=== PATIENT | female | born 1965 | race African-American/Black ===

== ENCOUNTER 2019-08-03 09:23 | Emergency (ER) | payer OTHER | END 2019-08-03 18:45 | disposition home or self-care (01) | LOC: JER 09:23 ==

== ENCOUNTER 2019-08-04 08:41 | Inpatient (IN) | payer OTHER ==
[2019-08-04 09:07] VITALS: BMI 16.0
--- NOTE | 2019-08-04 10:49 | HP ---
CIWA Score Nausea/Vomitin-No Nausea/No Vomiting Muscle Tremors: None Anxiety: 0-No Anxiety, at Ease Agitation: 1-Slight > Activity Paroxysmal Sweats: No Perspiration Orientation: 0-Oriented Tacttile Disturbances: 0-None Auditory Disturbances: 0-None Visual Disturbances: 0-None Headache: 0-None Present CIWA-Ar Total Score: 1 - Admission Criteria OASAS Guidelines: Admission for Medically Managed Detox: Requires at least one of the followin. CIWA greater than 12 2. Seizures within the past 24 hours 3. Delirium tremens within the past 24 hours 4. Hallucinations within the past 24 hours 5. Acute intervention needed for co occurring medical disorder 6. Acute intervention needed for co occurring psychiatric disorder 7. Severe withdrawal that cannot be handled at a lower level of care (continued vomiting, continued diarrhea, abnormal vital signs) requiring intravenous medication and/or fluids 8. Admission ROS [facility] Allergies/Adverse Reactions: Allergies Allergy/AdvReac Type Severity Reaction Status Date / Time No Known Allergies Allergy Verified 08/04/19 08:55 History of Present Illness: 54 y.o. female pt requesting detox from etoh use , reports sober x 20 years , relapsed 1 yr ago after loss of , mother . currently 2 pints /day , occasional tremors , denies blackouts or seizures, current symptoms as above, was in ER [facility] overnight, given Librium . Reports feeling off - balance s/p fall 1 week ago , seen in ER yesterday , head CT done . tobacco ; 1 ppd PMHX : htn PSych : denies PSHX : denies Exam Limitations: No Limitations - Ebola screening Have you traveled outside of the country in the last 21 days: No Have you had contact with anyone from an Ebola affected area: No Do you have a fever: No - Review of Systems Constitutional: Loss of Appetite EENT: reports: Other (lost glasses ( myopia )) Respiratory: reports: No Symptoms reported Cardiac: reports: No Symptoms Reported GI: reports: Diarrhea, Poor Appetite : reports: No Symptoms Reported Musculoskeletal: reports: No Symptoms Reported Integumentary: reports: No Symptoms Reported Neuro: reports: No Symptoms reported Endocrine: reports: No Symptoms Reported Psychiatric: reports: Orientated x3 Patient History - Patient Medical History Hx Chronic Obstructive Pulmonary Disease (COPD): No - Patient Surgical History Hx Lung Surgery: No - Smoking Cessation Smoking history: Current every day smoker Have you smoked in the past 12 months: Yes Aproximately how many cigarettes per day: 20 Hx Chewing Tobacco Use: No Initiated information on smoking cessation: No - Substances abused Alcohol Substance route: Oral Frequency: Daily Amount used: vodka-2pt Age of first use: 18 Date of last use: 08/03/19 Family Disease History - Family Disease History Family History: Denies Admission Physical Exam B[facility] - Vital Signs Vital Signs: Vital Signs - 24 hr 08/04/19 08/04/19 08:55 10:06 Temperature 97.2 F L 97.2 F L Pulse Rate 93 H 93 H Respiratory 18 18 Rate Blood Pressure 158/108 H 158/108 H - Physical General Appearance: Yes: No Apparent Distress HEENTM: Yes: EOMI, Hearing grossly Normal, Normocephalic, Normal Voice Respiratory: Yes: Lungs Clear, Normal Breath Sounds, No Respiratory Distress, No Accessory Muscle Use Neck: Yes: No masses,lesions,Nodules, Trachea in good position Cardiology: Yes: Regular Rhythm, Regular Rate, S1, S2, Tachycardia Abdominal: Yes: Non Tender, Soft Back: Yes: Normal Inspection Musculoskeletal: Yes: Gait Steady Extremities: Yes: Normal Range of Motion, Non-Tender Neurological: Yes: Fully Oriented, Alert, Motor Strength 5/5 Integumentary: Yes: Warm - Diagnostic (1) Alcohol abuse Current Visit: Yes Status: Acute Breathalyzer - Breathalyzer Breathalyzer: 0 Urine Drug Screen - Test Device Lot number: [id number] Expiration date: 04/17/21 - Control Is test valid?: Yes - Results Drug screen NEGATIVE: No Urine drug screen results: BZO-Benzodiazepines Inpatient Rehab Admission - Rehab Decision to Admit Inpatient rehab admission?: No
[2019-08-04] MEDS ORDERED: MENTHOL/PHENOL 1 EACH UD MM PRN (10:55)
[2019-08-04] MEDS ORDERED: MAGNESIUM CITRATE 300 ML BOTTLE PO PRN (10:55)
[2019-08-04] MEDS ORDERED: MELATONIN 5 MG TABLETS PO PRN (10:55)
[2019-08-04] MEDS ORDERED: MAGNESIUM HYDROX 2400MG/30ML ORAL SUSPENSION 30 ML CUP PO PRN (10:55)
[2019-08-04] MEDS ORDERED: MAG HYDROX/AL HYDROX/SIMETH 30 ML UNIT-DOSE CUP PO PRN (10:55)
[2019-08-04] MEDS ORDERED: BISMUTH SUBSALICYLATE 524 MG/30 ML UD PO PRN (10:55)
[2019-08-04] MEDS ORDERED: ACETAMINOPHEN 325 MG TABLET (FP) PO PRN ×2 (10:55)
[2019-08-04] MEDS ORDERED: hydrOXYzine PAMOATE 25 MG CAPSULE (FP) PO PRN (10:55)
[2019-08-04] MEDS ORDERED: IBUPROFEN 400 MG TABLET (FP) PO PRN (10:55)
[2019-08-04] MEDS ORDERED: diazePAM 5 MG TABLET PO PRN (10:58)
[2019-08-04] MEDS: diazePAM 5 MG TABLET PO SCH ×2 (15:15→22:20)
[2019-08-04] MEDS: THIAMINE HCL 100 MG TABLET (FP) PO SCH (22:20)
[2019-08-05] MEDS: diazePAM 5 MG TABLET PO SCH ×2 (06:12→15:12)
[2019-08-05] MEDS: PRENATAL VITAMINS W/ FOLIC ACID TABLET (FP) PO SCH (10:28)
--- NOTE | 2019-08-05 12:07 | PN ---
S CIWA - CIWA Score Nausea/Vomitin-No Nausea/No Vomiting Muscle Tremors: 1-None Visible, but [place] Anxiety: 1-Mildly Anxious Agitation: 1-Slight > Activity Paroxysmal Sweats: No Perspiration Orientation: 0-Oriented Tacttile Disturbances: 0-None Auditory Disturbances: 0-None Visual Disturbances: 0-None Headache: 0-None Present CIWA-Ar Total Score: 3 BHS Progress Note (SOAP) Subjective: anxiety irritable tired Objective: 08/05/19 12:06 Vital Signs Temperature 98.1 F 08/05/19 09:27 Pulse Rate 101 H 08/05/19 09:27 Respiratory Rate 18 08/05/19 09:27 Blood Pressure 128/92 08/05/19 09:27 O2 Sat by Pulse Oximetry (%) Laboratory Tests 08/04/19 08/05/19 10:07 08:20 POC Urine HCG, Qual Negative RPR Titer Nonreactive rest of labs pending aaox3 ambulating no acute distress Assessment: 08/05/19 12:07 mild withdrawals Plan: continue detox increase fluids
[2019-08-06] MEDS: diazePAM 5 MG TABLET PO SCH ×3 (00:07→17:25)
[2019-08-06] MEDS: THIAMINE HCL 100 MG TABLET (FP) PO SCH ×2 (00:07→22:10)
[2019-08-06] MEDS: PRENATAL VITAMINS W/ FOLIC ACID TABLET (FP) PO SCH (10:23)
[2019-08-06] MEDS ORDERED: MELATONIN 5 MG TABLETS PO PRN (10:27)
--- NOTE | 2019-08-06 10:30 | PN ---
S CIWA - CIWA Score Nausea/Vomitin-No Nausea/No Vomiting Muscle Tremors: 1-None Visible, but [place] Anxiety: 1-Mildly Anxious Agitation: 1-Slight > Activity Paroxysmal Sweats: No Perspiration Orientation: 0-Oriented Tacttile Disturbances: 0-None Auditory Disturbances: 0-None Visual Disturbances: 0-None Headache: 0-None Present CIWA-Ar Total Score: 3 BHS Progress Note (SOAP) Subjective: sweats anxiety Objective: 08/06/19 10:30 Vital Signs Temperature 97.5 F L 08/06/19 09:24 Pulse Rate 84 08/06/19 09:24 Respiratory Rate 16 08/06/19 09:24 Blood Pressure 154/98 08/06/19 09:24 O2 Sat by Pulse Oximetry (%) Laboratory Tests 08/04/19 08/05/19 10:07 08:20 POC Urine HCG, Qual Negative RPR Titer Nonreactive aaox3 ambulating no acute distress Assessment: 08/06/19 14:45 mild withdrawals Plan: continue detox d/c in am
[2019-08-06] MEDS ORDERED: cloNIDine HCL 0.1 MG TABLET PO ONE (22:45)
--- NOTE | 2019-08-07 00:10 | PN ---
BHS Progress Note Note: Patient's blood pressure is B/P 179/115. Patient is asymptomatic Vital Signs Temperature 97 F L 08/06/19 22:45 Pulse Rate 88 08/06/19 22:45 Respiratory Rate 18 08/06/19 22:45 Blood Pressure 179/115 H 08/06/19 22:45 O2 Sat by Pulse Oximetry (%) Action: Clonidine 0.1mg tablet ordered
[2019-08-07] MEDS ORDERED: diazePAM 5 MG TABLET PO ONE (06:00)
--- NOTE | 2019-08-07 08:47 | DS ---
[facility] Detox Discharge Summary Admission Date: 08/04/19 Discharge Date: 08/07/19 - History Present History: Alcohol Dependence - Physical Exam Results Vital Signs: Vital Signs Temperature 96.8 F L 08/07/19 07:54 Pulse Rate 66 08/07/19 07:54 Respiratory Rate 18 08/07/19 07:54 Blood Pressure 154/104 H 08/07/19 07:54 O2 Sat by Pulse Oximetry (%) Pertinent Admission Physical Exam Findings: pt arrived in withdrawals Laboratory Tests 08/04/19 08/05/19 10:07 08:20 POC Urine HCG, Qual Negative RPR Titer Nonreactive aaox3 ambulating no acute distress - Treatment Hospital Course: Detox Protocol Followed, Detoxed Safely, Responded well, Discharged Condition Good, Rehab Referral Accepted Patient has Accepted a Rehab Referral to: referral to [facility] inpatient rehab - Medication Discharge Medications: Ambulatory Orders NK [No Known Home Medication] 08/03/19 - Diagnosis (1) Alcohol abuse Current Visit: Yes Status: Chronic - AMA Did Patient Leave Against Medical Advice: No
[2019-08-07] MEDS: PRENATAL VITAMINS W/ FOLIC ACID TABLET (FP) PO SCH (11:21)
[2019-08-07] MEDS ORDERED: cloNIDine HCL 0.1 MG TABLET PO ONE (13:52)
[2019-08-07 14:01] VITALS: BP 151/105; PULSE 79; TEMP 96.8
--- NOTE | 2019-08-07 14:19 | PN ---
S Progress Note Note: Vital Signs Temperature 96.8 F L 08/07/19 14:01 Pulse Rate 79 08/07/19 14:01 Respiratory Rate 18 08/07/19 14:01 Blood Pressure 151/105 H 08/07/19 14:01 O2 Sat by Pulse Oximetry (%) clonidine 0.1 mg po now discharge to rehab as [employer] ME[employer]IC note Love Mckeon
== END 2019-08-07 15:51 | disposition other institution (70) | DRG 775 ==
LOC: YASAS 08:41 → Y6N 11:25
PROVIDERS: ADMIT Surgery; ATTEND Surgery
PROC: HZ2ZZZZ Detoxification Services for Substance Abuse Treatment (ICD-10-PCS; principal; 2019-08-04)
DX: F10.230 Alcohol dependence with withdrawal, uncomplicated (principal); F17.210 Nicotine dependence, cigarettes, uncomplicated; I10 Essential (primary) hypertension
CPT/HCPCS: 36415; 81025; 86480; 86593; J0735

== ENCOUNTER 2019-08-07 15:16 | Inpatient (IN) | payer OTHER ==
--- NOTE | 2019-08-07 15:32 | HP ---
[facility] Rehab Assess/Revision - Admission History Admitted to Rehab from: [facility] Date of Admission to Rehab: 08/07/19 - Findings Detox History & Physical reviewed: Yes Concur with findings: Yes Comments/Additional Findings: for rehab as protocol Inpatient Rehab Admission - Rehab Decision to Admit Inpatient rehab admission?: Yes - Initial Determination Are CD services needed?: Yes Free of communicable disease: Yes Not in need of hospitalization: Yes - Rehab Admission Criteria Previous failed treatment: Yes Poor recovery environment: Yes Comorbidities: Yes Lacks judgement: No Patient is meeting Inpatient Rehab admission criteria:: Yes
[2019-08-07] MEDS ORDERED: P-EPHED 60MG/TRIPROLIDI 2.5MG TABLET PO PRN (15:36)
[2019-08-07] MEDS ORDERED: MAGNESIUM CITRATE 300 ML BOTTLE PO PRN (15:36)
[2019-08-07] MEDS ORDERED: hydrOXYzine PAMOATE 50 MG CAPSULE (FP) PO PRN (15:36)
[2019-08-07] MEDS ORDERED: MAGNESIUM HYDROX 2400MG/30ML ORAL SUSPENSION 30 ML CUP PO PRN (15:36)
[2019-08-07] MEDS ORDERED: MENTHOL/PHENOL 1 EACH UD MM PRN (15:36)
[2019-08-07] MEDS ORDERED: MAG HYDROX/AL HYDROX/SIMETH 30 ML UNIT-DOSE CUP PO PRN (15:36)
[2019-08-07] MEDS ORDERED: guaiFENesin 200 MG/10 ML 10 ML UNIT-DOSE CUPS PO PRN (15:36)
[2019-08-07] MEDS ORDERED: LOPERAMIDE HCL 2 MG CAPSULE PO PRN (15:36)
[2019-08-07] MEDS ORDERED: ACETAMINOPHEN 325 MG TABLET (FP) PO PRN (15:36)
[2019-08-07] MEDS: THIAMINE HCL 100 MG TABLET (FP) PO SCH (21:19)
[2019-08-07] MEDS: MELATONIN 5 MG TABLETS PO PRN (21:19)
[2019-08-07] MEDS: cloNIDine HCL 0.1 MG TABLET PO SCH (21:19)
[2019-08-08] MEDS: PRENATAL VITAMINS W/ FOLIC ACID TABLET (FP) PO SCH (09:42)
[2019-08-08] MEDS: cloNIDine HCL 0.1 MG TABLET PO SCH ×2 (09:43→21:37)
[2019-08-08] MEDS: THIAMINE HCL 100 MG TABLET (FP) PO SCH (21:37)
[2019-08-08] MEDS: MELATONIN 5 MG TABLETS PO PRN (21:38)
[2019-08-08] MEDS ORDERED: PT OWN MED DRAWER 7, Y5N ONE (22:27)
[2019-08-08] MEDS ORDERED: ACETAMINOPHEN 325 MG TABLET (FP) ONE (22:28)
[2019-08-09] MEDS: PRENATAL VITAMINS W/ FOLIC ACID TABLET (FP) PO SCH (09:46)
[2019-08-09] MEDS: cloNIDine HCL 0.1 MG TABLET PO SCH ×2 (09:46→21:19)
[2019-08-09] MEDS: THIAMINE HCL 100 MG TABLET (FP) PO SCH (21:19)
[2019-08-09] MEDS: MELATONIN 5 MG TABLETS PO PRN (21:19)
[2019-08-10] MEDS: PRENATAL VITAMINS W/ FOLIC ACID TABLET (FP) PO SCH (09:37)
[2019-08-10] MEDS: cloNIDine HCL 0.1 MG TABLET PO SCH ×2 (10:31→22:10)
--- NOTE | 2019-08-10 12:14 | PN ---
S Progress Note Note: Patient c/o anxiety, sadness and insomnia since admission. Patient denies SI/ HI. Vital Signs Temperature 97.5 F L 08/10/19 06:45 Pulse Rate 73 08/10/19 10:00 Respiratory Rate 16 08/10/19 06:45 Blood Pressure 121/85 08/10/19 10:00 O2 Sat by Pulse Oximetry (%) PE alert and oriented x 3 skin warm and dry +perrla, eoms intact bl ext full rom, amb ad monae mildly anxious A/P sad affect insomnia anxiety psych consult ordered
--- NOTE | 2019-08-10 19:21 | CONSULT ---
[facility] Psychiatric Consult - Data Date of interview: 08/10/19 Admission source: [facility] Identifying data: First visit at [facility] and direct admission to [address] for this 54 y/o AA female self-referred for rehabilitative care for alcohol use disorder. 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 Substance Abuse History: Smoking history: Current every day smoker. Have you smoked in the past 12 months: Yes. Aproximately how many cigarettes per day: 20. Hx Chewing Tobacco Use: No. Initiated information on smoking cessation: No. - Substances abused. Alcohol. Substance route: Oral. Frequency: Daily. Amount used: vodka-2pt. Age of first use: 18. Date of last use: Medical History: Hypertension. Psychiatric History: Patient denies history of psychiatric hospitalizations, OPD care or suicide attempts. Physical/Sexual Abuse/Trauma History: Traumas : deaths of mother (2010) + (2014), relocation to [facility] (lost everything in [place]) and alcohol dependence. Additional Comment: Urine drug screen results: BZO-Benzodiazepines. Noted. Mental Status Exam - Mental Status Exam Alert and Oriented to: Time, Place, Person Cognitive Function: Good Patient Appearance: Well Groomed (thin, frail habitus) Mood: Withdrawn, Apprehensive Affect: Appropriate, Mood Congruent, Normal Range Patient Behavior: Cooperative Speech Pattern: Clear, Appropriate Voice Loudness: Normal Thought Process: Intact, Goal Oriented Thought Disorder: Not Present Hallucinations: Denies Suicidal Ideation: Denies Insight/Judgement: Fair Sleep: Well Appetite: Good Gait/Station: Normal Psychiatric Findings - Problem List ([place] 1, 2,3) (1) Alcohol use disorder Current Visit: Yes Status: Chronic - Initial Treatment Plan Initial Treatment Plan: Psychoeducation. Sleep hygiene. Support. AA meetings. Relapse prevention (MAT) revisited with the patient. Ms Little is offered options of naltrexone (oral and long-acting formulation) or acamprosate. Patient indicates that she needs time " to think about it ". Motivational counseling. Observation. Interview was conducted in the presence of building engineer, CAMILLA Max (with patient's verbal authorization).
[2019-08-10] MEDS ORDERED: PT OWN MED DRAWER 7, Y5N ONE (21:03)
[2019-08-10] MEDS: MELATONIN 5 MG TABLETS PO PRN (22:10)
[2019-08-10] MEDS: THIAMINE HCL 100 MG TABLET (FP) PO SCH (22:10)
[2019-08-11] MEDS: PRENATAL VITAMINS W/ FOLIC ACID TABLET (FP) PO SCH (09:51)
[2019-08-11] MEDS ORDERED: BENZOCAINE 20 % GEL TUBE MM PRN (10:11)
[2019-08-11] MEDS: MELATONIN 5 MG TABLETS PO PRN (21:31)
[2019-08-11] MEDS: THIAMINE HCL 100 MG TABLET (FP) PO SCH (21:31)
[2019-08-12] MEDS: PRENATAL VITAMINS W/ FOLIC ACID TABLET (FP) PO SCH (09:37)
[2019-08-12] MEDS: THIAMINE HCL 100 MG TABLET (FP) PO SCH (21:39)
[2019-08-12] MEDS ORDERED: PT OWN MED DRAWER 7, Y5N ONE (22:03)
[2019-08-13] MEDS: PRENATAL VITAMINS W/ FOLIC ACID TABLET (FP) PO SCH (10:54)
[2019-08-13] MEDS ORDERED: PT OWN MED DRAWER 7, Y5N ONE ×2 (20:28→21:59)
[2019-08-13] MEDS: THIAMINE HCL 100 MG TABLET (FP) PO SCH (21:31)
[2019-08-13] MEDS: MELATONIN 5 MG TABLETS PO PRN (21:31)
[2019-08-14] MEDS: PRENATAL VITAMINS W/ FOLIC ACID TABLET (FP) PO SCH (10:09)
[2019-08-14] MEDS: IBUPROFEN 400 MG TABLET (FP) PO PRN (13:35)
[2019-08-14] MEDS: MELATONIN 5 MG TABLETS PO PRN (21:12)
[2019-08-14] MEDS: THIAMINE HCL 100 MG TABLET (FP) PO SCH (21:12)
[2019-08-15] MEDS: PRENATAL VITAMINS W/ FOLIC ACID TABLET (FP) PO SCH (09:36)
[2019-08-16] MEDS: THIAMINE HCL 100 MG TABLET (FP) PO SCH ×2 (00:05→21:10)
[2019-08-16] MEDS: PRENATAL VITAMINS W/ FOLIC ACID TABLET (FP) PO SCH (09:50)
[2019-08-16] MEDS: MELATONIN 5 MG TABLETS PO PRN (21:10)
[2019-08-17] MEDS: PRENATAL VITAMINS W/ FOLIC ACID TABLET (FP) PO SCH (09:36)
[2019-08-17] MEDS ORDERED: PT OWN MED DRAWER 7, Y5N ONE ×2 (10:20→19:56)
[2019-08-17] MEDS: MELATONIN 5 MG TABLETS PO PRN (21:27)
[2019-08-17] MEDS: THIAMINE HCL 100 MG TABLET (FP) PO SCH (21:27)
[2019-08-18] MEDS: PRENATAL VITAMINS W/ FOLIC ACID TABLET (FP) PO SCH (09:35)
[2019-08-18] MEDS: MELATONIN 5 MG TABLETS PO PRN (21:12)
[2019-08-18] MEDS: METHYL SALICYLATE/MENTHOL OINT 30 GM TUBE TP PRN (21:12)
[2019-08-18] MEDS: THIAMINE HCL 100 MG TABLET (FP) PO SCH (21:12)
[2019-08-18] MEDS ORDERED: PT OWN MED DRAWER 7, Y5N ONE (21:43)
[2019-08-19] MEDS: PRENATAL VITAMINS W/ FOLIC ACID TABLET (FP) PO SCH (09:32)
[2019-08-19] MEDS: THIAMINE HCL 100 MG TABLET (FP) PO SCH (21:13)
[2019-08-19] MEDS: MELATONIN 5 MG TABLETS PO PRN (21:13)
[2019-08-19] MEDS: METHYL SALICYLATE/MENTHOL OINT 30 GM TUBE TP PRN (21:13)
[2019-08-20] MEDS: PRENATAL VITAMINS W/ FOLIC ACID TABLET (FP) PO SCH (09:35)
--- NOTE | 2019-08-20 11:05 | DS ---
[facility] Rehab Discharge Summary - [facility] Rehab Discharge Summary Admission Date: 08/07/19 Discharge Date: 08/20/19 - History Present History: Alcohol dependence Pertinent Past History: PT was admitted on 08/04 for alcohol detox. Completed 08/07. Has been in rehab since then. Pt states she is doing well. Pt states she goes to AA meetings- and will continue with this. 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 Pt states she has strong support systems. Pt states she has HTN- but was not taking meds. Pt will be getting a PCP- through [facility]- to follow up her BP. PT states she does not need any medications. Vital Signs - 24 hr 08/20/19 08/20/19 00:30 07:12 Temperature 97.4 F L Pulse Rate 81 Respiratory 16 18 Rate Blood Pressure 136/94 - Discharge Physical Exam Vital Signs: Vital Signs Temperature 97.4 F L 08/20/19 07:12 Pulse Rate 81 08/20/19 07:12 Respiratory Rate 18 08/20/19 07:12 Blood Pressure 136/94 08/20/19 07:12 O2 Sat by Pulse Oximetry (%) - Treatment Discharge Condition: Discharge condition good - Medication Discharge Medications: Ambulatory Orders NK [No Known Home Medication] 08/03/19 - Discharge Instructions Diet, activity, other medical instructions: Diet: Activity: Other medical instructions: - Follow-up Referral Minutes to complete discharge: 30 - AMA Did Patient Leave Against Medical Advice: No
[2019-08-20] MEDS: IBUPROFEN 400 MG TABLET (FP) PO PRN (11:36)
[2019-08-20] MEDS: THIAMINE HCL 100 MG TABLET (FP) PO SCH (21:04)
[2019-08-20] MEDS: MELATONIN 5 MG TABLETS PO PRN (21:04)
[2019-08-21 06:47] VITALS: BP 138/87; PULSE 87; TEMP 97.2
== END 2019-08-21 08:48 | disposition home or self-care (01) | DRG 772 ==
LOC: YASAS 15:16 → Y3E 15:25
PROVIDERS: ADMIT Neuromusculoskeletal Medicine & OMM; ATTEND Neuromusculoskeletal Medicine & OMM
PROC: HZ42ZZZ Group Counseling for Substance Abuse Treatment, Cognitive-Behavioral (ICD-10-PCS; principal; 2019-08-12)
DX: F10.20 Alcohol dependence, uncomplicated (principal); F17.210 Nicotine dependence, cigarettes, uncomplicated; I10 Essential (primary) hypertension
CPT/HCPCS: J0735